=== PATIENT | female | born 1995 | race African-American/Black ===

== ENCOUNTER 2019-11-14 09:15 | Emergency (ER) | payer MEDICAID ==
[~2019-11-14] VITALS: Ht 157.5 cm; Wt 62.0 kg
[2019-11-14] MEDS ORDERED: VISCOUS LIDOCAINE 2% 15 ML UDC PO STA (09:41)
[2019-11-14] MEDS ORDERED: MAGNESIUM/ALUMINUM HYDROXIDE/SIMETHICONE 30ML UDC PO STA (09:41)
[2019-11-14] MEDS ORDERED: ONDANSETRON 4MG ODT PO STA (09:41)
[2019-11-14 10:01] LABS: CLARITY URINE CLOUDY (CLEAR); COLOR URINE YELLOW (YELLOW); KETONES URINE NEGATIVE (NEGATIVE); LEUKOCYTE ESTERASE URINE NEGATIVE (NEGATIVE); NITRITE URINE NEGATIVE (NEGATIVE); OCCULT BLOOD URINE NEGATIVE (NEGATIVE); PH URINE >=9.0 (4.5-8.0); PROTEIN URINE TRACE (NEGATIVE); SPECIFIC GRAVITY URINE 1.026 (1.005-1.030)
[2019-11-14 10:21] LABS: CHLORIDE 109 mEq/L (98-107)
[2019-11-14 10:44] LABS: BASOPHILS % 0.4 % (0.0-2.0); EOSINOPHILS % 2.7 % (0.0-5.0); HEMATOCRIT. 37.8 % (36.0-48.0); HEMOGLOBIN. 12.6 g/dL (12.0-16.0); LYMPHOCYTES % 19.8 % (20.0-50.0); MEAN CORPUSCULAR VOLUME 83.8 fL (81.0-99.0); MEAN PLATELET VOLUME 11.3 fl (7.4-10.4); MONOCYTES % 6.4 % (2.0-8.0); NEUTROPHILS % 70.7 % (40.0-76.0); PLATELET 129 x1000/uL (130-400); RED BLOOD CELL COUNT 4.51 mill/uL (4.2-5.4); RED CELL DISTRIBUTION WIDTH 15.8 % (11.6-14.6)
[2019-11-14 11:28] VITALS: BP 135/79
== END 2019-11-14 11:30 | disposition home or self-care (01) ==
LOC: ER 09:15
DX: N39.0 Urinary tract infection, site not specified (principal); R11.2 Nausea with vomiting, unspecified; K29.70 Gastritis, unspecified, without bleeding; J45.909 Unspecified asthma, uncomplicated; Z98.890 Other specified postprocedural states
CPT/HCPCS: 36415; 76705; 80053; 81003; 81025; 83690; 85025; 99284; Q0162

== ENCOUNTER 2020-03-11 10:31 | Emergency (ER) | payer MEDICAID ==
[~2020-03-11] VITALS: Ht 165.1 cm; Wt 60.0 kg
[2020-03-11 10:34] VITALS: BP 108/73
[2020-03-11] MEDS ORDERED: PREDNISONE 20MG TABLET PO ONE (10:45)
== END 2020-03-11 11:37 | disposition home or self-care (01) ==
LOC: ER 10:31
DX: U07.1 COVID-19 (principal); J45.901 Unspecified asthma with (acute) exacerbation; Z98.890 Other specified postprocedural states
CPT/HCPCS: 71045; 81025; 99284; C9803; J7512; U0003

== ENCOUNTER 2020-05-25 14:15 | Emergency (ER) | payer MEDICAID | END 2020-05-25 15:13 | disposition left against medical advice (07) | LOC: EDBD → ER 14:42 | DX: Z53.21 Procedure and treatment not carried out due to patient leaving prior to being seen by health care provider (principal) ==

== ENCOUNTER 2020-05-25 17:51 | Emergency (ER) | payer MEDICAID ==
[~2020-05-25] VITALS: Ht 157.5 cm; Wt 59.0 kg
[2020-05-25] MEDS ORDERED: IBUPROFEN 600MG TABLET PO ONE (18:45)
[2020-05-25 19:15] VITALS: BP 128/68
== END 2020-05-25 19:24 | disposition home or self-care (01) ==
LOC: ER 17:51
DX: S46.911A Strain of unspecified muscle, fascia and tendon at shoulder and upper arm level, right arm, initial encounter (principal); M79.601 Pain in right arm; V43.52XA Car driver injured in collision with other type car in traffic accident, initial encounter; Y93.9 Activity, unspecified; Y92.410 Unspecified street and highway as the place of occurrence of the external cause
CPT/HCPCS: 73030; 73060; 81025; 99284

== ENCOUNTER 2020-12-09 10:33 | Emergency (ER) | payer MEDICAID ==
[~2020-12-09] VITALS: Ht 157.5 cm; Wt 68.0 kg
[2020-12-09 11:35] LABS: EOSINOPHILS % 6.2 % (0.0-5.0); HEMOGLOBIN. 11.5 g/dL (12.0-16.0); LYMPHOCYTES % 28.2 % (20.0-50.0); MEAN CORPUSCULAR HEMOGLOBIN 28.1 pg (28.0-32.0); MEAN CORPUSCULAR VOLUME 85.4 fL (81.0-99.0); MEAN PLATELET VOLUME 11.4 fl (7.4-10.4); MONOCYTES % 10.7 % (2.0-8.0); NEUTROPHILS % 53.9 % (40.0-76.0); PLATELET 124 x1000/uL (130-400); RED CELL DISTRIBUTION WIDTH 14.6 % (11.6-14.6)
[2020-12-09 11:42] LABS: CHLORIDE 110 mEq/L (98-107)
[2020-12-09 15:00] VITALS: BP 112/70
== END 2020-12-09 16:00 | disposition left against medical advice (07) ==
LOC: ER 10:33 → EDBEDREQ 13:08 → EDBEDREQTM 13:08 → CANRESERV 14:56 → ENRESERV 14:56 → ER 16:00 → CANBEDREQ 16:27
DX: R00.1 Bradycardia, unspecified (principal); R55 Syncope and collapse; F12.10 Cannabis abuse, uncomplicated; Z98.890 Other specified postprocedural states
CPT/HCPCS: 36415; 71045; 80053; 83880; 84484; 85025; 93005; 99285

== ENCOUNTER 2020-12-09 16:17 | Emergency (ER) | payer MEDICAID ==
[~2020-12-09] VITALS: Ht 157.5 cm; Wt 68.0 kg
[2020-12-09 19:34] LABS: BASOPHILS % 0.7 % (0.0-2.0); EOSINOPHILS % 5.2 % (0.0-5.0); HEMATOCRIT. 34.7 % (36.0-48.0); HEMOGLOBIN. 11.6 g/dL (12.0-16.0); MEAN CORPUSCULAR VOLUME 86.7 fL (81.0-99.0); MEAN PLATELET VOLUME 11.1 fl (7.4-10.4); MONOCYTES % 9.4 % (2.0-8.0); NEUTROPHILS % 57.7 % (40.0-76.0); PLATELET 116 x1000/uL (130-400); RED CELL DISTRIBUTION WIDTH 14.7 % (11.6-14.6)
[2020-12-09 19:40] LABS: CHLORIDE 108 mEq/L (98-107)
[2020-12-09 19:48] LABS: HCG SCREEN NEGATIVE
[2020-12-09 20:40] LABS: *AMPHETAMINES SCREEN URINE NEGATIVE (NEGATIVE); *BARBITURATES SCREEN URINE NEGATIVE (NEGATIVE); *BENZODIAZEPINES SCREEN URINE NEGATIVE (NEGATIVE); *COCAINE SCREEN URINE NEGATIVE (NEGATIVE); METHADONE URINE SCREEN NEGATIVE (NEGATIVE)
[2020-12-09 20:41] LABS: OPIATES URINE SCREEN NEGATIVE (NEGATIVE); PHENCYCLIDINE URINE SCREEN NEGATIVE (NEGATIVE)
[2020-12-09 20:45] LABS: CANNABINOID URINE SCREEN PRESUMTIVE POSITIVE (NEGATIVE)
[2020-12-09 21:40] VITALS: BP 112/84
== END 2020-12-09 21:48 | disposition home or self-care (01) ==
LOC: ER 17:06
DX: R55 Syncope and collapse (principal); R05 Cough; J45.909 Unspecified asthma, uncomplicated; F12.10 Cannabis abuse, uncomplicated; Z98.890 Other specified postprocedural states
CPT/HCPCS: 36415; 80048; 80305; 81025; 84703; 85025; 93005; 99284